=== PATIENT | female | born 1935 | race Caucasian/White ===

== ENCOUNTER 2023-07-04 17:18 | Inpatient (IN) ==
[2023-07-04 18:15] LABS: Basophils # (Auto) 0.02 K/mcL (0.00-0.30); Basophils % (Auto) 0.1 % (0.0-2.0); Eosinophils # (Auto) 0.23 K/mcL (0.00-0.70); Eosinophils % (Auto) 1.4 % (0.0-7.0); Hematocrit 47.2 % (34.1-44.9); Hemoglobin 15.5 g/dL (11.2-15.7); Lymphocytes # (Auto) 1.22 K/mcL (1.50-4.80); Lymphocytes % (Auto) 7.5 % (15.5-49.0); Mean Cell Volume 98.5 fL (80.0-100.0); Mean Corpuscular HGB Conc 32.8 g/dL (31.0-36.0); Mean Platelet Volume 9.8 fL (8.8-12.5); Monocytes # (Auto) 0.49 K/mcL (0.10-0.90); Neutrophils % (Auto) 87.7 % (38.0-78.0); Platelet Count 175 K/mcL (140-440); RBC 4.79 M/mcL (3.59-5.38); Red Cell Distribution Width 12.2 % (11.5-14.5); WBC 16.3 K/mcL (4.5-11.0)
[2023-07-04 18:34] LABS: ALT/SGPT 16 U/L (<40); AST/SGOT 27 U/L (<32); Albumin 3.8 gm/dL (3.2-5.2); Albumin/Globulin Ratio 1.2 (1.0-2.3); Alkaline Phosphatase 72 U/L (39-117); Bilirubin,Total 0.7 mg/dL (0.1-1.0); Blood Urea Nitrogen 15 mg/dL (8-23); Calcium 11.2 mg/dL (8.6-10.4); Carbon Dioxide 27 mmol/L (22-30); Chloride 99 mmol/L (96-108); Globulin 3.1 gm/dL (2.2-3.7); Glomerular Filtration Rate 40; Glucose 129 mg/dL (70-105)
[2023-07-04] MEDS: cefTRIAXone 1 GM VIAL IV ONE (19:06)
[2023-07-04] MEDS: AZITHROMYCIN 250 MG TABLET PO ONE (19:07)
[2023-07-04] MEDS: FUROSEMIDE 40 MG/4 ML VIAL IV ONE (20:13)
[2023-07-04] MEDS ORDERED: LACTULOSE 20 GM/30 ML ORAL.SOL PO PRN (22:16)
[2023-07-04] MEDS ORDERED: METOPROLOL TARTRATE 5 MG/5 ML VIAL IV PRN (22:16)
[2023-07-04] MEDS ORDERED: ACETAMINOPHEN 325 MG TABLET PO PRN (22:16)
[2023-07-04] MEDS ORDERED: SENNOSIDES 1 TABLET PO PRN (22:16)
[2023-07-04] MEDS ORDERED: ONDANSETRON 4 MG/2 ML VIAL IV PRN (22:16)
[2023-07-04 23:20] LABS: Appearance,Urine Clear (Clear); Bacteria,Urine 0 /hpf (0); Bilirubin,Urine Negative (Negative); Color,Urine Yellow; Culture Indicated,Urine Yes; Glucose,Urine (UA) Negative (Negative); Ketones,Urine Negative (Negative); Leukocyte Esterase,Urine Moderate /uL (Negative); Nitrate,Urine Negative (Negative); Protein,Urine Negative (Negative); Specific Gravity,Urine 1.015 (1.000-1.035); Urine Blood Trace-intact ery/mcL (Negative); Urine RBC 1 /hpf (0-3); Urine Squamous Epithelial Cell 0 /hpf (0-4); Urine WBC 16 /hpf (0-4); Urobilinogen,Urine Normal
[2023-07-05] MEDS: METOPROLOL TARTRATE 25 MG TABLET PO SCH (00:12)
[2023-07-05] MEDS: APIXABAN 2.5 MG TABLET PO SCH (00:12)
[2023-07-05] MEDS: DOCUSATE SODIUM 100 MG CAPSULE PO SCH (00:17)
[2023-07-05] MEDS: 0.9 % SODIUM CHLORIDE 10 ML SYRINGE IV SCH (00:19)
[2023-07-05 05:51] LABS: ALT/SGPT 13 U/L (<40); AST/SGOT 24 U/L (<32); Albumin 3.3 gm/dL (3.2-5.2); Albumin/Globulin Ratio 1.2 (1.0-2.3); Alkaline Phosphatase 63 U/L (39-117); Bilirubin,Direct 0.3 mg/dL (<0.3); Bilirubin,Total 0.7 mg/dL (0.1-1.0); Blood Urea Nitrogen 17 mg/dL (8-23); Calcium 10.4 mg/dL (8.6-10.4); Carbon Dioxide 27 mmol/L (22-30); Chloride 102 mmol/L (96-108); Globulin 2.7 gm/dL (2.2-3.7); Glomerular Filtration Rate 33; Glucose 110 mg/dL (70-105); Lactate Dehydrogenase 148 U/L (135-225); Triglycerides 68 mg/dL (<150); Uric Acid 10.1 mg/dL (2.5-8.0)
[2023-07-05 06:57] LABS: Basophils # (Auto) 0.06 K/mcL (0.00-0.30); Basophils % (Auto) 0.4 % (0.0-2.0); Eosinophils # (Auto) 0.63 K/mcL (0.00-0.70); Eosinophils % (Auto) 4.4 % (0.0-7.0); Hematocrit 43.4 % (34.1-44.9); Hemoglobin 14.2 g/dL (11.2-15.7); Lymphocytes # (Auto) 1.21 K/mcL (1.50-4.80); Lymphocytes % (Auto) 8.4 % (15.5-49.0); Mean Cell Volume 98.6 fL (80.0-100.0); Mean Corpuscular HGB Conc 32.7 g/dL (31.0-36.0); Mean Platelet Volume 10.1 fL (8.8-12.5); Monocytes # (Auto) 0.77 K/mcL (0.10-0.90); Monocytes % (Auto) 5.3 % (1.0-12.0); Platelet Count 165 K/mcL (140-440); Red Cell Distribution Width 12.6 % (11.5-14.5); WBC 14.4 K/mcL (4.5-11.0)
[2023-07-05] MEDS: AZITHROMYCIN 500 MG in DEXTROSE 5% IN WATER 250 ML IV SCH (11:31)
[2023-07-05] MEDS: cefTRIAXone 1 GM VIAL IV SCH (15:19)
[2023-07-06 05:46] LABS: Basophils # (Auto) 0.02 K/mcL (0.00-0.30); Basophils % (Auto) 0.3 % (0.0-2.0); Eosinophils # (Auto) 0.53 K/mcL (0.00-0.70); Eosinophils % (Auto) 6.8 % (0.0-7.0); Hematocrit 40.6 % (34.1-44.9); Hemoglobin 13.3 g/dL (11.2-15.7); Lymphocytes % (Auto) 19.2 % (15.5-49.0); Mean Corpuscular HGB Conc 32.8 g/dL (31.0-36.0); Mean Platelet Volume 9.8 fL (8.8-12.5); Monocytes # (Auto) 0.76 K/mcL (0.10-0.90); Monocytes % (Auto) 9.7 % (1.0-12.0); Neutrophils % (Auto) 63.9 % (38.0-78.0); Platelet Count 141 K/mcL (140-440); RBC 4.06 M/mcL (3.59-5.38); Red Cell Distribution Width 12.4 % (11.5-14.5); WBC 7.8 K/mcL (4.5-11.0)
[2023-07-06 06:08] LABS: ALT/SGPT 12 U/L (<40); AST/SGOT 25 U/L (<32); Albumin 3.1 gm/dL (3.2-5.2); Albumin/Globulin Ratio 1.1 (1.0-2.3); Alkaline Phosphatase 56 U/L (39-117); Bilirubin,Direct < 0.2 mg/dL (0-0.3); Bilirubin,Total 0.4 mg/dL (0.1-1.0); Blood Urea Nitrogen 21 mg/dL (8-23); Calcium 10.4 mg/dL (8.6-10.4); Carbon Dioxide 28 mmol/L (22-30); Chloride 104 mmol/L (96-108); Globulin 2.7 gm/dL (2.2-3.7); Glomerular Filtration Rate 36; Glucose 101 mg/dL (70-105); Lactate Dehydrogenase 147 U/L (135-225); Phosphorous 2.5 mg/dL (2.5-4.5); Thyroid Stimulating Hormone 2.65 uIU/mL (0.27-5.01); Triglycerides 71 mg/dL (<150); Uric Acid 10.2 mg/dL (2.5-8.0)
[2023-07-06] MEDS: FUROSEMIDE 20 MG TABLET PO SCH (08:54)
[2023-07-06] MEDS: LEVOTHYROXINE 75 MCG TABLET PO SCH (08:55)
[2023-07-06] MEDS: CEFUROXIME 500 MG TABLET PO SCH (08:56)
[2023-07-06] MEDS ORDERED: FUROSEMIDE 20 MG TABLET PO SCH (09:00)
[2023-07-06] MEDS ORDERED: ACETAMINOPHEN (PP) 325MG TABLET (#50) PO PRN (10:06)
[2023-07-06] MEDS ORDERED: CARBOXYMETHYLCELLULOSE SODIUM 1 EACH DROPER.GEL OU PRN (10:10)
[2023-07-06] MEDS: SPIRONOLACTONE 25 MG TABLET PO SCH (10:36)
[2023-07-06] MEDS ORDERED: KETOROLAC 15 MG/ML VIAL IV PRN (12:57)
[2023-07-06] MEDS ORDERED: LIDOCAINE 4% TOP PATCH TOPICAL PRN (13:34)
[2023-07-06] MEDS ORDERED: LIDOCAINE 4% TOP PATCH TOPICAL SCH (13:35)
[2023-07-06] MEDS: LIDOCAINE 4% TOP PATCH TOPICAL PRN (13:43)
[2023-07-06] MEDS ORDERED: ACETAMINOPHEN 1,000 MG/100 ML BAG IV PRN (14:00)
[2023-07-06] MEDS ORDERED: METOPROLOL TARTRATE 25 MG TABLET PO SCH (21:00)
[2023-07-06] MEDS ORDERED: APIXABAN 2.5 MG TABLET PO SCH (21:00)
[2023-07-07 06:28] LABS: Basophils # (Auto) 0.03 K/mcL (0.00-0.30); Basophils % (Auto) 0.5 % (0.0-2.0); Eosinophils # (Auto) 0.47 K/mcL (0.00-0.70); Eosinophils % (Auto) 7.3 % (0.0-7.0); Hematocrit 40.1 % (34.1-44.9); Hemoglobin 13.2 g/dL (11.2-15.7); Lymphocytes # (Auto) 1.84 K/mcL (1.50-4.80); Lymphocytes % (Auto) 28.4 % (15.5-49.0); Mean Cell Volume 98.8 fL (80.0-100.0); Mean Corpuscular HGB Conc 32.9 g/dL (31.0-36.0); Mean Platelet Volume 9.8 fL (8.8-12.5); Monocytes # (Auto) 0.67 K/mcL (0.10-0.90); Monocytes % (Auto) 10.4 % (1.0-12.0); Neutrophils % (Auto) 53.2 % (38.0-78.0); Platelet Count 158 K/mcL (140-440); RBC 4.06 M/mcL (3.59-5.38); Red Cell Distribution Width 12.3 % (11.5-14.5); WBC 6.5 K/mcL (4.5-11.0)
[2023-07-07 06:41] LABS: ALT/SGPT 15 U/L (<40); AST/SGOT 29 U/L (<32); Albumin 3.2 gm/dL (3.2-5.2); Albumin/Globulin Ratio 1.3 (1.0-2.3); Alkaline Phosphatase 54 U/L (39-117); Bilirubin,Direct < 0.2 mg/dL (0-0.3); Bilirubin,Total 0.4 mg/dL (0.1-1.0); Blood Urea Nitrogen 18 mg/dL (8-23); Calcium 9.9 mg/dL (8.6-10.4); Carbon Dioxide 30 mmol/L (22-30); Chloride 102 mmol/L (96-108); Globulin 2.5 gm/dL (2.2-3.7); Glomerular Filtration Rate 44; Glucose 101 mg/dL (70-105); Lactate Dehydrogenase 149 U/L (135-225); Phosphorous 2.6 mg/dL (2.5-4.5); Triglycerides 74 mg/dL (<150); Uric Acid 10.2 mg/dL (2.5-8.0)
[2023-07-07] MEDS: POLYETHYLENE GLYCOL 3350 17 GM PACKET PO SCH (09:20)
[2023-07-07] MEDS: FUROSEMIDE 20 MG TABLET PO SCH (09:20)
[2023-07-07] MEDS ORDERED: LIDOCAINE 4% TOP PATCH TOPICAL SCH (10:00)
[2023-07-07] MEDS ORDERED: MAGNESIUM HYDROXIDE 30 ML ORAL.SUSP PO PRN (14:50)
[2023-07-07] MEDS: ACETAMINOPHEN 325 MG TABLET PO PRN (14:52)
[2023-07-07] MEDS: IBUPROFEN 200 MG TABLET PO PRN (20:06)
[2023-07-08 06:09] LABS: Basophils # (Auto) 0.02 K/mcL (0.00-0.30); Basophils % (Auto) 0.4 % (0.0-2.0); Eosinophils # (Auto) 0.52 K/mcL (0.00-0.70); Eosinophils % (Auto) 10.8 % (0.0-7.0); Hematocrit 40.6 % (34.1-44.9); Hemoglobin 13.2 g/dL (11.2-15.7); Lymphocytes # (Auto) 1.71 K/mcL (1.50-4.80); Lymphocytes % (Auto) 35.4 % (15.5-49.0); Mean Cell Volume 100.2 fL (80.0-100.0); Mean Corpuscular HGB Conc 32.5 g/dL (31.0-36.0); Mean Platelet Volume 9.5 fL (8.8-12.5); Monocytes # (Auto) 0.52 K/mcL (0.10-0.90); Monocytes % (Auto) 10.8 % (1.0-12.0); Neutrophils % (Auto) 42.2 % (38.0-78.0); Platelet Count 153 K/mcL (140-440); RBC 4.05 M/mcL (3.59-5.38); WBC 4.8 K/mcL (4.5-11.0)
[2023-07-08 06:16] LABS: ALT/SGPT 15 U/L (<40); AST/SGOT 29 U/L (<32); Albumin 3.1 gm/dL (3.2-5.2); Albumin/Globulin Ratio 1.2 (1.0-2.3); Alkaline Phosphatase 53 U/L (39-117); Bilirubin,Total 0.5 mg/dL (0.1-1.0); Blood Urea Nitrogen 18 mg/dL (8-23); Calcium 9.5 mg/dL (8.6-10.4); Carbon Dioxide 28 mmol/L (22-30); Chloride 100 mmol/L (96-108); Globulin 2.5 gm/dL (2.2-3.7); Glomerular Filtration Rate 44; Glucose 86 mg/dL (70-105)
[2023-07-08] MEDS: VITAMIN D3 125 MCG TABLET PO SCH (08:12)
[2023-07-08] MEDS: FISH OIL 1,000 MG CAPSULE PO SCH (08:12)
[2023-07-08] MEDS: POTASSIUM CHLORIDE 10 MEQ TABLET PO SCH (08:12)
[2023-07-08] MEDS: CALCIUM CARBONATE 500 MG TAB.CHEW PO SCH (08:12)
[2023-07-08] MEDS: MAGNESIUM OXIDE 400 MG TABLET PO SCH (08:13)
[2023-07-08] MEDS: MULTIVIT,THER IRON,CA,FA & MIN 1 TABLET PO SCH (08:13)
[2023-07-08 14:36] VITALS: TEMP 97.8; O2SAT 95
== END 2023-07-08 14:55 | DRG 193 ==
LOC: ED 17:18 → ICU 22:10
PROVIDERS: ADMIT Internal Medicine; ATTEND Internal Medicine